=== PATIENT | male | born 1970 | race Two or more races ===

== ENCOUNTER 2023-09-07 00:40 | Emergency (ER) | payer OTHER ==
[~2023-09-07] VITALS: Ht 165.1 cm; Wt 100.0 kg
[2023-09-07 00:40] VITALS: BP 127/71; PULSE 67; RESP 18; O2SAT 96
[2023-09-07] MEDS ORDERED: CYCL-614 PO (02:11)
[2023-09-07] MEDS ORDERED: IBUP-1456 PO (02:11)
[2023-09-07] MEDS: KETOROLAC TROMETH 60MG/2ML VIAL IM ONE (02:46)
== END 2023-09-07 03:21 | disposition home or self-care (01) ==
LOC: ER 00:40
DX: M77.8 Other enthesopathies, not elsewhere classified (principal)
CPT/HCPCS: 73030; 96372; 99284; J1885